=== PATIENT | female | born 1955 | race Caucasian/White ===

== ENCOUNTER → 2017-10-13 07:33 | Outpatient (CLI) | payer OTHER, SELFPAY ==
[2017-10-13 09:05] LABS: Add Manual Diff / Slide Review NO; Eosinophils Percent Auto 4.3 % (2-4); Hematocrit 41.3 % (36-46); Hemoglobin 13.9 g/dL (12.0-16.0); Lymphocytes Percent Auto 16.1 % (25-40); Mean Corpuscular HGB Conc 33.6 % (30-36); Mean Corpuscular Hemoglobin 30.1 PG (26-34); Mean Corpuscular Volume 89.6 fL (80-100); Monocytes Percent Auto 9.9 % (3-14); Neutrophils Absolute Auto 6300 /uL (3000-5900); Neutrophils Percent Auto 68.7 % (50-75); Platelet Count 279 X10^3/uL (150-400); Red Blood Cell Count 4.61 X10^6/uL (4.0-5.2); Red Cell Distribution Width 14.8 % (11.6-14.8); White Blood Cell Count 9.1 X10^3/uL (4.5-11.0)
[2017-10-13 09:22] LABS: Alanine Aminotransferase 28 IU/L (9-52); Albumin 4.1 g/dL (3.5-5.0); Albumin Globulin Ratio 1.4 (1.0-2.8); Alkaline Phosphatase 96 U/L (38-126); Aspartate Aminotransferase 24 IU/L (14-36); BUN Creatinine Ratio 16.3 (6-22); Bilirubin Total 0.4 mg/dL (0.2-1.3); Blood Urea Nitrogen 13 mg/dL (7-17); Calcium 9.6 mg/dL (8.4-10.2); Carbon Dioxide 27 mmol/L (22-32); Chloride 100 mmol/L (98-107); Estimated Glomerular Filt Rate > 60.0 mL/min (>60); Globulin 2.9 g/dL (1.7-4.1); Glucose 101 mg/dL (80-110); HEMOLYSIS < 15 (0-50); Potassium 4.5 mmol/L (3.4-5.1); Sodium 141 mmol/L (137-145)
== END ==
PROVIDERS: PCP Internal Medicine; Visit Provider Physician Assistant
DX: L40.0 Psoriasis vulgaris (principal)
CPT/HCPCS: 36415; 80053; 85025

== ENCOUNTER 2017-11-21 13:34 | Day surgery (SDC) | payer OTHER, SELFPAY ==
[2017-11-04 14:34] VITALS: BMI 25.9
[2017-11-21] VITALS (7 sets, daily range): BP systolic 112–143; BP diastolic 69–80; PULSE 61–86; RESP 12–21; TEMP 36.1–36.8; O2SAT 93–99; BMI 25.9
--- NOTE | 2017-11-21 07:48 | PM.OP.1 ---
Operative Date/Time/Diagnoses Date of procedure: 11/21/17 Time of procedure: 18:52 Pre-op diagnosis: Right hallux abductovalgus with bunion, arthritis Post-op diagnosis: same Procedure & Clinicians Procedure: Right bunionectomy with distal metatarsal osteotomy and proximal phalangeal osteotomy Same procedure as scheduled: Yes Indications: Painful great toe Surgeon: Naila Garcia Yes if Unassisted: Yes Anesthesia Type: General Operative Notes Findings: Closure Type: primary Specimen(s): none sent Implants & Drains: Trilliant 2.0 x2 screws and Gobler staple size 8x8 Estimated Blood Loss (mL): 20 Tourniquet time (min): 49 Procedure in detail: The patient was brought to the operating room and placed on the operative table in the supine position well-padded and appropriately aligned. A tourniquet was placed about the patient's right ankle. After induction of general anesthesia the foot and ankle were prepped and draped in the usual aseptic manner. After a check of anesthesia the TQ was inflated and an incision was made over the first metatarsophalangeal joint. The incision was deepened through subcutaneous tissues being careful to identify and retract all neural and vascular structures. All bleeders were cauterized and ligated as necessary. A T-type capsulotomy was performed to the 1st MTPJ to expose the enlarged medial eminence of the 1st metatarsal head. Additionally, the 1st interspace was entered and a lateral release was performed. The medial eminence was resected with a saw and a saw was then used to perform a chevron cut with a long dorsal arm to the 1st metatarsal medially to laterally. The distal fragment was then mobilized lateralized and we impacted upon the shaft. The osteotomy was temporarily fixated with a guidewire and shown to be in good corrected alignment. Using standard AO techniques and through the aid of a C-arm a 2.0 mm screw was placed and a 2nd 1 was placed as well. These were found to be strong in good alignment and through the aid of fluoroscopy showing no areas of impingement. The area of overhang of the proximal shaft was then reduced with a saw and any sharp edges were smoothed with a manual rasp. All remaining guidewires were removed. It was at this point that the correction was needed further and the phalangeal osteotomy was desired. The incision was lengthened through the proximal phalanx of the hallux and dissection was carried down to the bone. Using an adequate amount of room for hardware placement the saw was used to create 2 bone cuts which resulted in a wedge with a lateral hinge intact. This wedge of bone was removed and gently the osteotomy was closed down using the standard technique, a staple was placed across the osteotomy and placed the osteotomy under tension which closed it. Upon loading the foot under fluoroscopy alignment was good. The area was irrigated with copious amounts of normal sterile saline. The tourniquet was deflated and a prompt hyperemic response was seen to the foot. A medial capsulorrhaphy to the 1st MTPJ was performed which further aided in correction of the alignment. Deep closure was performed using 3 0 Vicryl for O subcutaneously and 3 0 nylon to the skin. She was dressed with a lightly compressive sterile dressing and placed in her postsurgical shoe. She was transferred to the PACU with vital signs stable. Complications: none Condition: stable Disposition: PACU Plan for aftercare: Following a period of postoperative monitoring the patient will be discharged home on written and oral postoperative instructions including keeping the dressing dry and intact, avoid ambulation to the foot, icing and elevating the foot when seated at home, ,DVT prevention techniques have been reviewed her 1st postoperative visit will be a dressing change and around the weeks 3-/2 to 4 will have her 1st postoperative x-ray. Nonweightbearing.
[2017-11-21] MEDS: LACTATED RINGERS 1,000 ML 42 ML IV (16:00)
--- NOTE | 2017-11-21 16:57 | PM.PREOP ---
Pre-operative Note Interval Note Pre-op Check: Yes History & Physical Reviewed by Physician Changes: No
[2017-11-21] MEDS: CEFAZOLIN VIAL 1 GM in SODIUM CHLORIDE 0.9% 100 ML 200 ML IV (17:09)
--- NOTE | 2017-11-21 17:38 | SUR.OPER ---
Supine on padded OR bed, head on pillow, arms secured on padded arm boards at <90 degrees abduction, legs uncrossed, safety belt at waist, tape over blanket over lower left leg. Right leg drapped free with gel bump under right hip
[2017-11-21] MEDS: BUPIVACAINE 0.5% (PF) VIAL 30 ML INJ (18:00)
--- NOTE | 2017-11-21 19:49 | SUR.PHASEII ---
Pt able to wiggle toes, reported numb great toe. drsg cdi, shoe in place.
== END 2017-11-21 19:43 | disposition home or self-care (01) ==
PROVIDERS: PCP Internal Medicine; Visit Provider Podiatrist
PROC: 0QBN0ZZ Excision of Right Metatarsal, Open Approach (ICD-10-PCS; CPT 28292; principal; 2017-11-21 15:15)
DX: M77.41 Metatarsalgia, right foot (principal); M20.11 Hallux valgus (acquired), right foot; M21.611 Bunion of right foot
CPT/HCPCS: 28299; J0690; J1100; J1170; J2405; J2704

== ENCOUNTER → 2018-03-23 14:22 | Outpatient (CLI) | payer OTHER, SELFPAY ==
[2018-03-23 14:36] LABS: Add Manual Diff / Slide Review NO; Basophils Percent Auto 0.6 % (0-2); Eosinophils Percent Auto 0.8 % (2-4); Hematocrit 42.9 % (36-46); Hemoglobin 13.9 g/dL (12.0-16.0); Lymphocytes Percent Auto 24.2 % (25-40); Mean Corpuscular HGB Conc 32.4 % (30-36); Mean Corpuscular Volume 92.6 fL (80-100); Monocytes Percent Auto 8.7 % (3-14); Neutrophils Absolute Auto 6000 /uL (3000-5900); Neutrophils Percent Auto 65.7 % (50-75); Platelet Count 275 X10^3/uL (150-400); Red Blood Cell Count 4.63 X10^6/uL (4.0-5.2); Red Cell Distribution Width 14.9 % (11.6-14.8); White Blood Cell Count 9.1 X10^3/uL (4.5-11.0)
[2018-03-23 14:54] LABS: Alanine Aminotransferase 31 IU/L (9-52); Albumin 4.6 g/dL (3.5-5.0); Albumin Globulin Ratio 1.7 (1.0-2.8); Alkaline Phosphatase 81 U/L (38-126); Aspartate Aminotransferase 29 IU/L (14-36); BUN Creatinine Ratio 21.3 (6-22); Bilirubin Total 0.3 mg/dL (0.2-1.3); Blood Urea Nitrogen 17 mg/dL (7-17); Calcium 9.7 mg/dL (8.4-10.2); Carbon Dioxide 27 mmol/L (22-32); Chloride 101 mmol/L (98-107); Estimated Glomerular Filt Rate > 60.0 mL/min (>60); Globulin 2.7 g/dL (1.7-4.1); Glucose 99 mg/dL (80-110); HEMOLYSIS < 15 (0-50); Potassium 3.9 mmol/L (3.4-5.1); Sodium 140 mmol/L (137-145); Total Protein 7.3 g/dL (6.3-8.2)
== END ==
PROVIDERS: Family Provider Internal Medicine; PCP Internal Medicine; Visit Provider Physician Assistant
DX: L40.0 Psoriasis vulgaris (principal)
CPT/HCPCS: 36415; 80053; 85025

== ENCOUNTER → 2018-06-05 14:05 | Outpatient (CLI) | payer OTHER, SELFPAY ==
--- NOTE | 2018-06-05 | DI.US.S_ITS ---
PROCEDURE: US CAROTID DOPPLER BI INDICATIONS: TINNITIS TECHNIQUE: Color and pulse Doppler interrogation was performed of both carotid systems, with image documentation and velocity measurements. COMPARISON: None. FINDINGS: Stenosis calculations are based on SRU (Society of Radiologists in Ultrasound) criteria. The flow velocities and the arterial waveforms are normal within both carotid arterial systems. Atherosclerotic plaque is seen on both sides. The estimated degree of internal carotid artery stenosis is less than 50%. Antegrade flow is confirmed within both vertebral arteries. IMPRESSION: No hemodynamically significant stenosis is seen. Atherosclerotic plaque is noted bilaterally. Dictated by: Wilberto Rg M.D. on 06/05/2018 at 15:35 Approved by: Wilberto Rg M.D. on 06/05/2018 at 15:35
== END ==
PROVIDERS: Family Provider Internal Medicine; PCP Internal Medicine; Visit Provider Otolaryngology Facial Plastic Surgery
DX: H93.A1 Pulsatile tinnitus, right ear (principal); I65.23 Occlusion and stenosis of bilateral carotid arteries
CPT/HCPCS: 93880

== ENCOUNTER → 2018-06-17 11:55 | Outpatient (CLI) | payer OTHER, SELFPAY ==
--- NOTE | 2018-06-17 | DI.MG.S_ITS ---
BILATERAL DIGITAL SCREENING MAMMOGRAM 3D/2D WITH CAD: 06/17/2018 CLINICAL: Routine screening. Comparison is made to exams dated: 06/02/2017 mammogram and 05/30/2016 mammogram - [facility]. The tissue of both breasts is heterogeneously dense. This may lower the sensitivity of mammography. Current study was also evaluated with a Computer Aided Detection (CAD) system. No significant masses, calcifications, or other findings are seen in either breast. There has been no significant interval change. IMPRESSION: NEGATIVE There is no mammographic evidence of malignancy. A 1 year screening mammogram is recommended. This exam was interpreted at Station ID: [id number]. NOTE: For mammograms, a report in lay terms will be sent to the patient. Approximately 15% of breast malignancies will not be visualized mammographically. In the management of a palpable breast mass, a negative mammogram must not discourage biopsy of a clinically suspicious lesion. Electronically Signed By: Lalit lynn/lara:06/17/2018 16:10:30 copy to: Maida Machado letter sent: Normal Exam ACR BI-RADS Category 1: Negative 3341F
== END ==
PROVIDERS: Family Provider Internal Medicine; PCP Internal Medicine; Visit Provider Obstetrics & Gynecology
DX: Z12.31 Encounter for screening mammogram for malignant neoplasm of breast (principal)
CPT/HCPCS: 77063; 77067

== ENCOUNTER → 2018-07-29 08:41 | Outpatient (CLI) | payer OTHER, SELFPAY ==
[2018-07-29 10:15] LABS: Add Manual Diff / Slide Review NO; Basophils Absolute Auto 100 /uL (0-100); Eosinophils Absolute Auto 100 /uL (0-450); Eosinophils Percent Auto 1.4 % (2-4); Lymphocytes Absolute Auto 2000 /uL (1100-4500); Lymphocytes Percent Auto 23.6 % (25-40); Mean Corpuscular HGB Conc 34.1 % (30-36); Mean Corpuscular Hemoglobin 31.3 PG (26-34); Monocytes Absolute Auto 600 /uL (0-900); Monocytes Percent Auto 7.2 % (3-14); Neutrophils Absolute Auto 5500 /uL (1500-7000); Neutrophils Percent Auto 66.8 % (50-75); Platelet Count 275 X10^3/uL (150-400); Red Blood Cell Count 4.46 X10^6/uL (4.0-5.2); Red Cell Distribution Width 14.3 % (11.6-14.8); White Blood Cell Count 8.3 X10^3/uL (4.5-11.0)
[2018-07-29 10:58] LABS: Alanine Aminotransferase 38 IU/L (9-52); Albumin 4.4 g/dL (3.5-5.0); Albumin Globulin Ratio 1.6 (1.0-2.8); Alkaline Phosphatase 85 U/L (38-126); Aspartate Aminotransferase 32 IU/L (14-36); Bilirubin Total 0.6 mg/dL (0.2-1.3); Blood Urea Nitrogen 17 mg/dL (7-17); Calcium 9.8 mg/dL (8.4-10.2); Carbon Dioxide 26 mmol/L (22-32); Chloride 100 mmol/L (98-107); Globulin 2.7 g/dL (1.7-4.1); Glucose 98 mg/dL (80-110); HEMOLYSIS < 15 (0-50); Potassium 4.7 mmol/L (3.4-5.1); Sodium 138 mmol/L (137-145); Total Protein 7.1 g/dL (6.3-8.2)
== END ==
PROVIDERS: Family Provider Internal Medicine; PCP Internal Medicine; Visit Provider Physician Assistant
DX: L40.0 Psoriasis vulgaris (principal)
CPT/HCPCS: 36415; 80053; 85025

== ENCOUNTER → 2018-10-26 07:45 | Outpatient (CLI) | payer OTHER, SELFPAY ==
[2018-10-26 09:29] LABS: Alanine Aminotransferase 30 IU/L (9-52); Albumin 4.3 g/dL (3.5-5.0); Albumin Globulin Ratio 1.4 (1.0-2.8); Alkaline Phosphatase 100 U/L (38-126); Aspartate Aminotransferase 34 IU/L (14-36); BUN Creatinine Ratio 14.4 (6-22); Bilirubin Total 0.5 mg/dL (0.2-1.3); Blood Urea Nitrogen 13 mg/dL (7-17); Calcium 9.4 mg/dL (8.4-10.2); Carbon Dioxide 28 mmol/L (22-32); Chloride 105 mmol/L (98-107); Cholesterol 168 mg/dL (140-199); Estimated Glomerular Filt Rate > 60.0 mL/min (>60); Glucose 95 mg/dL (80-110); HDL Cholesterol 50 mg/dL (40-60); HEMOLYSIS < 15 (0-50); LDL Cholesterol Calculated 83 mg/dL (<100); Potassium 4.1 mmol/L (3.4-5.1); Sodium 143 mmol/L (137-145); Total Protein 7.3 g/dL (6.3-8.2); Triglycerides 175 mg/dL (35-150)
[2018-10-26 09:42] LABS: Vitamin D 25 Hydroxy (D3) 64.8 ng/mL (30.0-100.0)
[2018-10-26 09:49] LABS: Add Manual Diff / Slide Review NO; Basophils Absolute Auto 100 /uL (0-100); Basophils Percent Auto 0.9 % (0-2); Eosinophils Absolute Auto 100 /uL (0-450); Eosinophils Percent Auto 1.8 % (2-4); Hematocrit 42.4 % (36-46); Hemoglobin 14.2 g/dL (12.0-16.0); Lymphocytes Absolute Auto 2200 /uL (1100-4500); Lymphocytes Percent Auto 26.3 % (25-40); Mean Corpuscular HGB Conc 33.4 % (30-36); Mean Corpuscular Volume 92.6 fL (80-100); Monocytes Absolute Auto 500 /uL (0-900); Monocytes Percent Auto 6.3 % (3-14); Neutrophils Absolute Auto 5400 /uL (1500-7000); Neutrophils Percent Auto 64.7 % (50-75); Platelet Count 234 X10^3/uL (150-400); Red Blood Cell Count 4.58 X10^6/uL (4.0-5.2); Red Cell Distribution Width 14.1 % (11.6-14.8); White Blood Cell Count 8.3 X10^3/uL (4.5-11.0)
[2018-10-26 09:58] LABS: Thyroid Stimulating Hormone 2.91 uIU/mL (0.47-4.68)
[2018-10-26 10:15] LABS: Hemoglobin A1C% w Est Avg Glu 5.4 % (4.0-6.0)
== END ==
PROVIDERS: Family Provider Internal Medicine; PCP Internal Medicine; Visit Provider Nurse Practitioner Psychiatric/Mental Health
DX: F33.1 Major depressive disorder, recurrent, moderate (principal); F39 Unspecified mood [affective] disorder
CPT/HCPCS: 36415; 80053; 80061; 80175; 82306; 83036; 84443; 85025

== ENCOUNTER → 2019-02-26 07:48 | Outpatient (CLI) | payer OTHER, SELFPAY ==
[2019-02-26 08:18] LABS: Add Manual Diff / Slide Review NO; Basophils Absolute Auto 100 /uL (0-100); Basophils Percent Auto 1.1 % (0-2); Eosinophils Absolute Auto 200 /uL (0-450); Eosinophils Percent Auto 2.6 % (2-4); Hematocrit 39.5 % (36-46); Lymphocytes Absolute Auto 1700 /uL (1100-4500); Lymphocytes Percent Auto 24.7 % (25-40); Mean Corpuscular HGB Conc 32.9 % (30-36); Mean Corpuscular Hemoglobin 31.1 PG (26-34); Mean Corpuscular Volume 94.5 fL (80-100); Monocytes Absolute Auto 600 /uL (0-900); Monocytes Percent Auto 9.3 % (3-14); Neutrophils Absolute Auto 4300 /uL (1500-7000); Neutrophils Percent Auto 62.3 % (50-75); Platelet Count 223 X10^3/uL (150-400); Red Blood Cell Count 4.18 X10^6/uL (4.0-5.2); Red Cell Distribution Width 14.6 % (11.6-14.8); White Blood Cell Count 6.8 X10^3/uL (4.5-11.0)
[2019-02-26 08:54] LABS: Alanine Aminotransferase 20 IU/L (9-52); Albumin 4.2 g/dL (3.5-5.0); Albumin Globulin Ratio 1.8 (1.0-2.8); Alkaline Phosphatase 90 U/L (38-126); Aspartate Aminotransferase 26 IU/L (14-36); Bilirubin Total 0.5 mg/dL (0.2-1.3); Blood Urea Nitrogen 14 mg/dL (7-17); Calcium 9.6 mg/dL (8.4-10.2); Carbon Dioxide 25 mmol/L (22-32); Chloride 103 mmol/L (98-107); Globulin 2.4 g/dL (1.7-4.1); Glucose 99 mg/dL (80-110); HEMOLYSIS 19 (0-50); Potassium 4.5 mmol/L (3.4-5.1); Sodium 139 mmol/L (137-145); Total Protein 6.6 g/dL (6.3-8.2)
== END ==
PROVIDERS: Family Provider Internal Medicine; PCP Internal Medicine; Visit Provider Physician Assistant
DX: L40.0 Psoriasis vulgaris (principal)
CPT/HCPCS: 36415; 80053; 85025

== ENCOUNTER → 2019-06-29 12:22 | Outpatient (CLI) | payer OTHER, SELFPAY ==
--- NOTE | 2019-06-29 | DI.MG.S_ITS ---
BILATERAL DIGITAL SCREENING MAMMOGRAM 3D/2D WITH CAD: 06/29/2019 CLINICAL: Routine screening. Family history of breast cancer. Comparison is made to exams dated: 06/17/2018 mammogram - [facility], 06/02/2017 mammogram, and 05/30/2016 mammogram - [facility]. The tissue of both breasts is heterogeneously dense. This may lower the sensitivity of mammography. Current study was also evaluated with a Computer Aided Detection (CAD) system. There are benign calcifications in the right breast. No significant masses, calcifications, or other findings are seen in either breast. There has been no significant interval change. IMPRESSION: There is no mammographic evidence of malignancy. A 1 year screening mammogram is recommended. This exam was interpreted at Station ID: [id number]. NOTE: For mammograms, a report in lay terms will be sent to the patient. Approximately 15% of breast malignancies will not be visualized mammographically. In the management of a palpable breast mass, a negative mammogram must not discourage biopsy of a clinically suspicious lesion. Electronically Signed By: Eva paul/lara:06/29/2019 14:56:30 letter sent: Normal Exam ACR BI-RADS Category 2: Benign Finding(s) 3342F
== END ==
PROVIDERS: Family Provider Internal Medicine; PCP Internal Medicine; Referring Provider Internal Medicine; Visit Provider Internal Medicine
DX: Z12.31 Encounter for screening mammogram for malignant neoplasm of breast (principal); Z80.3 Family history of malignant neoplasm of breast; Z13.820 Encounter for screening for osteoporosis; M85.851 Other specified disorders of bone density and structure, right thigh; Z78.0 Asymptomatic menopausal state; Z82.62 Family history of osteoporosis
CPT/HCPCS: 77063; 77067; 77080

== ENCOUNTER → 2019-09-16 11:40 | Outpatient (CLI) | payer OTHER, SELFPAY ==
[2019-09-16 12:35] LABS: Add Manual Diff / Slide Review NO; Basophils Absolute Auto 0 /uL (0-100); Basophils Percent Auto 0.5 % (0-2); Eosinophils Absolute Auto 0 /uL (0-450); Eosinophils Percent Auto 0.6 % (2-4); Hematocrit 42.1 % (36-46); Hemoglobin 13.9 g/dL (12.0-16.0); Lymphocytes Absolute Auto 1900 /uL (1100-4500); Lymphocytes Percent Auto 25.8 % (25-40); Mean Corpuscular HGB Conc 33.2 % (30-36); Mean Corpuscular Hemoglobin 30.9 PG (26-34); Mean Corpuscular Volume 93.3 fL (80-100); Monocytes Absolute Auto 700 /uL (0-900); Monocytes Percent Auto 9.1 % (3-14); Neutrophils Absolute Auto 4700 /uL (1500-7000); Platelet Count 245 X10^3/uL (150-400); Red Blood Cell Count 4.51 X10^6/uL (4.0-5.2); Red Cell Distribution Width 14.3 % (11.6-14.8); White Blood Cell Count 7.4 X10^3/uL (4.5-11.0)
[2019-09-16 12:54] LABS: Alanine Aminotransferase 16 IU/L (<35); Albumin 4.4 g/dL (3.5-5.0); Albumin Globulin Ratio 1.5 (1.0-2.8); Alkaline Phosphatase 92 U/L (38-126); Aspartate Aminotransferase 26 IU/L (14-36); BUN Creatinine Ratio 15.3 (6-22); Bilirubin Total 0.3 mg/dL (0.2-1.3); Blood Urea Nitrogen 15 mg/dL (7-17); Calcium 9.6 mg/dL (8.4-10.2); Carbon Dioxide 27 mmol/L (22-32); Chloride 101 mmol/L (98-107); Estimated Glomerular Filt Rate 57.1 mL/min (>60); Glucose 89 mg/dL (80-110); HEMOLYSIS < 15 (0-50); Potassium 4.4 mmol/L (3.4-5.1); Sodium 138 mmol/L (137-145); Total Protein 7.4 g/dL (6.3-8.2)
[2019-09-16 13:40] LABS: Hepatitis B Surface Antigen NEGATIVE s/c (NEGATIVE)
[2019-09-16 13:56] LABS: HIV 1 & 2 Ab/Ag 4th Gen Combo NEGATIVE (NEGATIVE); Hep C Virus Ab w/Reflex Quant NEGATIVE s/c (NEGATIVE)
[2019-09-20 00:49] LABS: QuantiFERON Mitogen Value 6.88 IU/mL (.); QuantiFERON Nil Value 0.12 IU/mL (.); QuantiFERON TB Gold Plus Negative (Negative); QuantiFERON TB1 Ag Value 0.14 IU/mL (.); QuantiFERON TB2 Ag Value 0.11 IU/mL (.)
== END ==
PROVIDERS: Family Provider Internal Medicine; PCP Internal Medicine; Referring Provider Physician Assistant; Visit Provider Physician Assistant
DX: L40.0 Psoriasis vulgaris (principal)
CPT/HCPCS: 36415; 80053; 85025; 86480; 86803; 87340; 87389

== ENCOUNTER → 2020-06-15 08:26 | Outpatient (CLI) | payer OTHER, SELFPAY ==
[2020-06-15 09:40] LABS: Add Manual Diff / Slide Review NO; Basophils Absolute Auto 0 /uL (0-100); Basophils Percent Auto 0.7 % (0-2); Eosinophils Absolute Auto 0 /uL (0-450); Eosinophils Percent Auto 0.3 % (2-4); Hematocrit 41.5 % (36-46); Hemoglobin 13.3 g/dL (12.0-16.0); Lymphocytes Absolute Auto 2300 /uL (1100-4500); Lymphocytes Percent Auto 35.1 % (25-40); Mean Corpuscular HGB Conc 32.1 % (30-36); Mean Corpuscular Hemoglobin 29.5 PG (26-34); Mean Corpuscular Volume 91.9 fL (80-100); Monocytes Absolute Auto 700 /uL (0-900); Monocytes Percent Auto 10.4 % (3-14); Neutrophils Absolute Auto 3600 /uL (1500-7000); Neutrophils Percent Auto 53.5 % (50-75); Platelet Count 214 X10^3/uL (150-400); Red Blood Cell Count 4.52 X10^6/uL (4.0-5.2); Red Cell Distribution Width 14.3 % (11.6-14.8); White Blood Cell Count 6.7 X10^3/uL (4.5-11.0)
[2020-06-15 09:58] LABS: Alanine Aminotransferase 157 IU/L (<35); Albumin Globulin Ratio 1.3 (1.0-2.8); Alkaline Phosphatase 103 U/L (38-126); Aspartate Aminotransferase 168 IU/L (14-36); BUN Creatinine Ratio 18.2 (6-22); Bilirubin Total 0.2 mg/dL (0.2-1.3); Blood Urea Nitrogen 18 mg/dL (7-17); Calcium 9.9 mg/dL (8.4-10.2); Carbon Dioxide 28 mmol/L (22-32); Chloride 106 mmol/L (98-107); Estimated Glomerular Filt Rate 56.3 mL/min (>60); Globulin 3.1 g/dL (1.7-4.1); Glucose 109 mg/dL (80-110); HEMOLYSIS < 15 (0-50); Potassium 4.2 mmol/L (3.4-5.1); Sodium 138 mmol/L (137-145); Total Protein 7.1 g/dL (6.3-8.2)
[2020-06-19 20:55] LABS: QuantiFERON Mitogen Value 8.45 IU/mL (.); QuantiFERON Nil Value 0.14 IU/mL (.); QuantiFERON TB Gold Plus Negative (Negative); QuantiFERON TB1 Ag Value 0.14 IU/mL (.); QuantiFERON TB2 Ag Value 0.14 IU/mL (.)
== END ==
PROVIDERS: Family Provider Internal Medicine; PCP Internal Medicine; Referring Provider Physician Assistant; Visit Provider Physician Assistant
DX: L40.0 Psoriasis vulgaris (principal); E11.65 Type 2 diabetes mellitus with hyperglycemia; E03.9 Hypothyroidism, unspecified
CPT/HCPCS: 36415; 80053; 85025; 86480

== ENCOUNTER → 2020-07-07 12:03 | Outpatient (CLI) | payer OTHER, SELFPAY ==
--- NOTE | 2020-07-07 | DI.MG.S_ITS ---
BILATERAL DIGITAL SCREENING MAMMOGRAM 3D/2D WITH CAD: 07/07/2020 CLINICAL: Routine screening. Family history of breast cancer. Comparison is made to exams dated: 06/29/2019 mammogram, 06/17/2018 mammogram - [facility], and 06/02/2017 mammogram - [facility]. The tissue of both breasts is heterogeneously dense. This may lower the sensitivity of mammography. Current study was also evaluated with a Computer Aided Detection (CAD) system. There is a biopsy clip in the right breast. No significant masses, calcifications, or other findings are seen in either breast. There has been no significant interval change. IMPRESSION: NEGATIVE There is no mammographic evidence of malignancy. A 1 year screening mammogram is recommended. This exam was interpreted at Station ID: [id number]. NOTE: For mammograms, a report in lay terms will be sent to the patient. Approximately 15% of breast malignancies will not be visualized mammographically. In the management of a palpable breast mass, a negative mammogram must not discourage biopsy of a clinically suspicious lesion. Electronically Signed By: Jeanmarie hummel/lara:07/07/2020 12:38:26 letter sent: Normal Exam ACR BI-RADS Category 1: Negative 3341F
== END ==
PROVIDERS: Family Provider Internal Medicine; PCP Internal Medicine; Referring Provider Internal Medicine; Visit Provider Internal Medicine
DX: Z12.31 Encounter for screening mammogram for malignant neoplasm of breast (principal); Z80.3 Family history of malignant neoplasm of breast
CPT/HCPCS: 77063; 77067

== ENCOUNTER → 2020-07-28 14:12 | Outpatient (CLI) | payer OTHER, SELFPAY ==
--- NOTE | 2020-07-28 14:14 | DI.CT.S_ITS ---
PROCEDURE: CT ABDOMEN PELVIS W CON INDICATIONS: Abnormal levels of other serum enzymes TECHNIQUE: After the administration of oral and intravenous contrast, 5 mm thick sections acquired from the diaphragms to the symphysis. 5 mm thick coronal and sagittal reformats were performed. For radiation dose reduction, the following was used: automated exposure control, adjustment of mA and/or kV according to patient size. COMPARISON: None. FINDINGS: Image quality: Excellent. ABDOMEN: Lung bases: Lung bases are clear. Heart size is normal. Solid organs: Liver is normal in size and enhancement. Gallbladder is normal. Biliary system is non-dilated. Pancreas enhances normally. Spleen is normal in size and enhancement. No adrenal nodules. Kidneys are normal in size and enhancement, without hydronephrosis. Peritoneum and bowel: The distal esophagus and stomach are normal. There is a 3 centimeter duodenal diverticulum. small bowel are normal. The large bowel contains increased stool consistent with constipation. Nodes and vessels: No retroperitoneal or mesenteric adenopathy. Aorta and inferior vena cava are normal in caliber. Miscellaneous: No ventral hernias. PELVIS: Genitourinary: Bladder wall thickness is normal. The uterus contains hyperdense foci consistent with fibroids. Miscellaneous: No inguinal hernias or adenopathy. Bones: There is degenerative disc disease of L4-5. No suspicious bony lesions. No vertebral body compression fractures. IMPRESSION: 1. No acute or significant abnormality of the abdomen or pelvis. 2. Constipation. Dictated by: Donato Cardenas M.D. on 07/28/2020 at 15:02 Approved by: Donato Cardenas M.D. on 07/28/2020 at 15:10
== END ==
PROVIDERS: Family Provider Internal Medicine; PCP Internal Medicine; Referring Provider Internal Medicine; Visit Provider Internal Medicine
DX: R74.8 Abnormal levels of other serum enzymes (principal); K59.00 Constipation, unspecified
CPT/HCPCS: 74177; Q9967

== ENCOUNTER → 2021-05-01 13:54 | Outpatient (CLI) | payer OTHER, SELFPAY ==
--- NOTE | 2021-05-01 13:56 | DIET.OUTPTC ---
Dietary Outpatient Consultation Note Consultation Date: 05/01/2021 Assessment: 65y F here to address preDM, CKD3, HLD. Pt desires weight loss, was 118# back in 2008, now 140# wants to lose weight to try to manage preDM and cholesterol levels. Pt has been following mostly plant-based diet x2y with occasional fish or meat on holidays with family. Pt states her has been fixated on protein content of foods and not on carb levels. Breakfast: indonesian toast c maple syrup c orange bagel c vegan butter and fruit Protein drink 8oz (banana, ice, almnd milk) Black tea L: roll and butter c date ball or yogurt or cheese D: Tacos c fake meat and refried beans, lettuce and tomatoes; soups and stews, black betancur enchilladas, Silvia: sparkling water, tea No current exercise, would like to walk but has fallen a few times and afraid for balance Labs: FBG 103, A1c 6.0, eGFR 51, Cr 1.07, hx HLD RD Impression: Pts diet high in carbohydrates but otherwise fairly kidney friendly. Pt reports having difficulty staying hydrated as she does not like to drink plain water. Pt would do well to increase physical activity to build lean body mass and practice consistent carbohydrate diet to lose 10% body weight and regulate blood sugars. Pt eating mostly plant proteins which is great for her kidney preservation. Nutrition Dx: altered nutrition related laboratory values r/t nutrition related knowledge deficit aeb FBG 103, A1c 6.0, eGFR 51, Cr 1.07, hx HLD, pt states she does not know how to eat to manage her current health conditions. EER: 1250kcals Interventions: 1. Educated pt on preDM- FBG, A1c, and ways to change these numbers in the short and senior care. Discussed carbohydrate levels in foods using handout and discussed in context of pts current intake. 2. Educated pt on plate balance eating. Using food models and pts usual diet, collaborated on problem solving higher carb meals and ensuring balance of PRO/CHO/F/V. 3. Discussed barriers to exercise. Pt will start walking on evenly paved paths. Pt was attending senior center fitness classes three times per week prior to covid. Printed off current newsletter and highlighted ZOOM classes, pt excited to restart. 4. Discussed important topics in CKD3- low sodium and moderating protein. Pt will eat 4 servings protein daily (half palm meat, 1/2c beans/lentils, handful nuts/seeds or 1tbs nut/seed butter). Pt will move her morning protein drink to a midmorning snack. Monitoring/Evaluation: f/u in 4w Electronically Signed by: Rafaela Song 05/01/21 13:56 Clinical Dietitian [address] [id number]
[2021-05-01 14:32] VITALS: BMI 26.4
== END ==
PROVIDERS: Family Provider Internal Medicine; PCP Internal Medicine; Referring Provider Internal Medicine; Visit Provider Internal Medicine
DX: R73.03 Prediabetes (principal); I12.9 Hypertensive chronic kidney disease with stage 1 through stage 4 chronic kidney disease, or unspecified chronic kidney disease; N18.30 Chronic kidney disease, stage 3 unspecified
CPT/HCPCS: 97802

== ENCOUNTER → 2021-05-29 13:56 | Outpatient (CLI) | payer OTHER, SELFPAY ==
--- NOTE | 2021-05-29 14:04 | DIET.PN1 ---
Dietary Progress Note 65y F attending [address] f/u visit for help with managing CKD 3 and to lose weight. Pt is -9# since March, and has lost 4# since our visit 4w ago. Pt was hoping to have lost more weight by now but understands this is the darkest of winter and just got through holiday season. Pt has many family birthdays in May/Jun and is wondering how to navigate the added calories inherent to celebrating birthdays. Pt started chair yoga since we last met, has walked a few times, would like to increase activity. Interventions: 1. Congratulated pt on losing 9# since before . Discussed sustainable weight loss with preference for losing fat mass rather than fat/muscle/water that occurs with crash dieting. 2. Discussed adding walk or exercise class on day she will be eating a slice of birthday cake. Discussed future planning to purchase or make single serve desserts to not be stuck eating leftovers for days after a birthday. 3. Encouraged pt to increase physical activity to 150min/week walking and two thirty minute zoom classes. Pt would like to lose belly fat, is already restricting kcals to 1250, recc pt increase physical activity and keep kcals the same. Pt getting next set of renal labs drawn in mid-Jun. F/U scheduled for late Jun to review new labs and discuss any nutrition changes. Electronically Signed by: Rafaela Song 05/29/21 14:04 Clinical Dietitian [address] [address]
== END ==
PROVIDERS: Family Provider Internal Medicine; PCP Internal Medicine; Referring Provider Internal Medicine; Visit Provider Internal Medicine
DX: N18.30 Chronic kidney disease, stage 3 unspecified (principal); Z71.3 Dietary counseling and surveillance
CPT/HCPCS: 97803

== ENCOUNTER → 2021-07-18 11:43 | Outpatient (CLI) | payer OTHER, SELFPAY ==
--- NOTE | 2021-07-18 | DI.MG.S_ITS ---
BILATERAL DIGITAL SCREENING MAMMOGRAM 3D/2D WITH CAD: 07/18/2021 CLINICAL: Family history of breast cancer. Comparison is made to exams dated: 07/07/2020 mammogram, 06/29/2019 mammogram, and 06/17/2018 mammogram - [facility]. The tissue of both breasts is heterogeneously dense. This may lower the sensitivity of mammography. Current study was also evaluated with a Computer Aided Detection (CAD) system. There is a biopsy clip in the right breast. No significant masses, calcifications, or other findings are seen in either breast. There has been no significant interval change. IMPRESSION: NEGATIVE There is no mammographic evidence of malignancy. A 1 year screening mammogram is recommended. This exam was interpreted at Station ID: [id number]. NOTE: For mammograms, a report in lay terms will be sent to the patient. Approximately 15% of breast malignancies will not be visualized mammographically. In the management of a palpable breast mass, a negative mammogram must not discourage biopsy of a clinically suspicious lesion. Electronically Signed By: Jeanmarie hummel/lara:07/18/2021 14:36:07 letter sent: Normal Exam ACR BI-RADS Category 1: Negative 3341F
== END ==
PROVIDERS: Family Provider Internal Medicine; PCP Internal Medicine; Referring Provider Internal Medicine; Visit Provider Internal Medicine
DX: Z12.31 Encounter for screening mammogram for malignant neoplasm of breast (principal); Z78.0 Asymptomatic menopausal state; Z80.3 Family history of malignant neoplasm of breast; M85.89 Other specified disorders of bone density and structure, multiple sites
CPT/HCPCS: 77063; 77067; 77080

== ENCOUNTER → 2021-07-24 12:53 | Outpatient (CLI) | payer OTHER, SELFPAY ==
--- NOTE | 2021-07-24 13:06 | DIET.PN1 ---
Dietary Progress Note 66y F attending f/u RD visit for CKD3, overweight, and pre-DM. Pt has lost 13# total and has normalized her BMI, no longer overweight. Pts newest renal labs steady. Pt would like to continue losing more weight, aims for BMI 21. Long discussion with pt who has osteopenia on not dropping BMI below 23. Pt unhappy with belly fat. Discussed increasing ab exercises to define musculature and advised against cutting any more PO intake as pt consuming 1250kcals. Shared modified ab workout c pt via YouTube. Pt will start this twice weekly in addition to her 150min weekly walking. Ht: 5'1 Wt: 128# BMI: 24.4 Usual Day: B: georgian muffin with almond butter and fresh berries with cup tea L: yogurt c mandarin orange or cube cheese with mandarin orange and triscuits D: 1/2 salmon burger c 1/2 bun and steamed veggies (cauliflower, broccoli and carrots, pepper) Sn: [employer] chocolate chips Monitoring/Evaluations: f/u in 3mo to review renal labs and discuss summer eating with renal dz. Electronically Signed by: Rafaela Song 07/24/21 13:06 Clinical Dietitian [address] [address]
== END ==
PROVIDERS: Family Provider Internal Medicine; PCP Internal Medicine; Referring Provider Internal Medicine; Visit Provider Internal Medicine
DX: R73.03 Prediabetes (principal); N18.30 Chronic kidney disease, stage 3 unspecified; E66.3 Overweight
CPT/HCPCS: 97803

== ENCOUNTER → 2021-10-30 13:24 | Outpatient (CLI) | payer OTHER, SELFPAY ==
--- NOTE | 2021-10-30 13:38 | DIET.OUTPTC ---
Dietary Outpatient Consultation Note Consultation Date: 10/30/[address] 66[address] f/u for CKD3. Pt got A1c done, not even preDM now that she has lost weight and is near her goal weight (-11.2% in 6mo). Renal fxn same as usual, eGFR in mid 50s. Current weight: 125# Pt and spouse get weekly vegetable bag from [employer]. Happy to eat fresh, local fruits and vegetables. Spent majority of today discussing summer eating for CKD and calcium contents of food as pt has osteopenia. Interventions: 1. Discussed high and low potassium foods in summer eating. Provided pt 5 recipes for renal friendly summer meals. 2. Provided pt handout on calcium content of vegetarian foods. Discussed pts current calcium intake and calcium supplementation. Pt takes 2 calcium pills at lunch daily, does not know how much they are. Pt will track her calcium from food for a few days and change her supplementation to fill the gap. f/u in mid-January to continue education. Electronically Signed by: Rafaela Song 10/30/21 13:38 Clinical Dietitian [address] [address]
== END ==
PROVIDERS: Family Provider Internal Medicine; PCP Internal Medicine; Referring Provider Internal Medicine; Visit Provider Internal Medicine
DX: N18.30 Chronic kidney disease, stage 3 unspecified (principal); Z71.3 Dietary counseling and surveillance
CPT/HCPCS: 97803

== ENCOUNTER → 2021-12-24 11:45 | Outpatient (CLI) | payer OTHER, SELFPAY ==
--- NOTE | 2021-12-24 | DI.RAD.S_ITS ---
PROCEDURE: XR CHEST 2V INDICATIONS: COUGH TECHNIQUE: 2 views of the chest were acquired. COMPARISON: [facility], , CHEST 2 VIEW, 07/07/2017, 11:27. FINDINGS: Surgical changes and devices: None. Lungs and pleura: Lungs are clear. No pleural effusions or pneumothorax. Mediastinum: Mediastinal contours are normal. Heart size is normal. Bones and chest wall: Mild rightward curvature of the thoracic spine. No suspicious bony abnormalities. Soft tissues appear unremarkable. IMPRESSION: No acute cardiopulmonary abnormality. Dictated by: Donato Cardenas M.D. on 12/24/2021 at 14:00 Approved by: Donato Cardenas M.D. on 12/24/2021 at 14:01
== END ==
PROVIDERS: Family Provider Internal Medicine; PCP Internal Medicine; Referring Provider Internal Medicine; Visit Provider Internal Medicine
DX: R05.1 Acute cough (principal); Z20.822 Contact with and (suspected) exposure to COVID-19
CPT/HCPCS: 71046; 87635

== ENCOUNTER → 2021-12-24 12:39 | Outpatient (ROUT) | payer OTHER, SELFPAY ==
[2021-12-24 13:04] LABS: COVID19 -Nasal RAPID Negative (Negative)
== END ==
PROVIDERS: Family Provider Internal Medicine; PCP Internal Medicine; Visit Provider Internal Medicine
DX: R05.1 Acute cough (principal); Z20.822 Contact with and (suspected) exposure to COVID-19
CPT/HCPCS: 87635

== ENCOUNTER → 2022-01-04 14:06 | Outpatient (CLI) | payer OTHER, SELFPAY ==
--- NOTE | 2022-01-04 14:11 | DI.CT.S_ITS ---
PROCEDURE: CT ANGIO CHEST PE PROTOCOL INDICATIONS: Shortness of breath lab TECHNIQUE: After the administration of intravenous contrast, 2 mm thick sections acquired from the pulmonary apices to the posterior costophrenic angles. 3-dimensional maximum intensity projection (MIP) coronal and sagittal reformats were then acquired through the thorax. For radiation dose reduction, the following was used: automated exposure control, adjustment of mA and/or kV according to patient size. COMPARISON: None. FINDINGS: Image quality: Excellent. Pulmonary arteries: Pulmonary arteries are normal in size, and demonstrate no intraluminal filling defects to suggest central pulmonary embolism. Lungs and pleura: A 7 mm ground-glass nodule is present at the right apex (series 5/image 48). Mediastinum: Heart size is normal, without pericardial effusion. No mediastinal or hilar adenopathy. Thoracic aorta is normal in caliber and enhancement. Esophagus is normal in caliber. There is a moderate hernia. Bones and chest wall: No suspicious bony lesions. Ribs and thoracic spine appear intact throughout. Thyroid gland is unremarkable. No axillary or supraclavicular adenopathy. Abdomen: Visualized upper abdominal solid organs appear normal in the early arterial phase of enhancement. IMPRESSION: 1. No acute pulmonary embolus. 2. 7 mm ground-glass nodule. Please see follow-up guidelines below. Follow-up CT in 6-12 months recommended. 3. Moderate hiatal hernia. Fleischner Society criteria for SOLID lung nodule followup. Nodule size (mm)Low-risk patientHigh-risk patient<6 (single or multiple)No routine followup.Optional CT at 12 months. 6-8 (single or multiple)CT at 6-12 months, then optional CT at 18-24 mo.CT at 6-12 months, then CT at 18-24 months. >8 (single)CT at 3 months, PET-CT, or biopsy. Same as for low-risk pts. >8 (multiple)CT at 3-6 months, then optional CT at 18-24 mo.CT at 3-6 months, then CT at 18-24 months. Fleischner Society criteria for SUB-SOLID lung nodule followup. Solitary pure ground-glass nodules<6 mm (ground glass or part solid)No followup needed. 6 mm or larger (ground glass)CT at 6-12 months to confirm persistence, then CT every 2 years until 5 years.6 mm or larger (part solid)CT at 3-6 months to confirm persistence, then annual CT until 5 years if unchanged and solid component remains <6 mm. Multiple sub-solid nodules<6 mmCT at 3-6 months, then CT consider at 2 & 4 years for high risk patients. [address] at 3-6 months. Subsequent management based on most suspicious lesions. Recommendations do not apply to lung cancer screening, patients with immunosuppression, or patients with known primary cancer. Dictated by: Eva Navarro M.D. on 01/04/2022 at 15:17 Approved by: Eva Navarro M.D. on 01/04/2022 at 15:21
[2022-01-04 14:26] LABS: Add Manual Diff / Slide Review NO; Basophils Absolute Auto 100 /uL (0-100); Eosinophils Absolute Auto 400 /uL (0-450); Eosinophils Percent Auto 2.7 % (2-4); Hematocrit 42.5 % (36-46); Hemoglobin 14.1 g/dL (12.0-16.0); Lymphocytes Absolute Auto 3700 /uL (1100-4500); Lymphocytes Percent Auto 28.4 % (25-40); Mean Corpuscular Hemoglobin 29.5 PG (26-34); Mean Corpuscular Volume 89.1 fL (80-100); Monocytes Absolute Auto 1000 /uL (0-900); Monocytes Percent Auto 7.6 % (3-14); Neutrophils Absolute Auto 7800 /uL (1500-7000); Neutrophils Percent Auto 60.3 % (50-75); Platelet Count 296 X10^3/uL (150-400); Red Blood Cell Count 4.77 X10^6/uL (4.0-5.2)
[2022-01-04 14:38] LABS: Alanine Aminotransferase 19 IU/L (<35); Albumin 4.2 g/dL (3.5-5.0); Albumin Globulin Ratio 1.3 (1.0-2.8); Alkaline Phosphatase 85 U/L (38-126); Aspartate Aminotransferase 27 IU/L (14-36); BUN Creatinine Ratio 18.7 (6-22); Bilirubin Total 0.3 mg/dL (0.2-1.3); Blood Urea Nitrogen 17 mg/dL (7-17); Calcium 9.2 mg/dL (8.4-10.2); Carbon Dioxide 28 mmol/L (22-32); Chloride 101 mmol/L (98-107); Estimated Glomerular Filt Rate > 60 mL/min (>60); Globulin 3.3 g/dL (1.7-4.1); Glucose 103 mg/dL (80-110); HEMOLYSIS < 15 (0-50); Potassium 4.2 mmol/L (3.4-5.1); Sodium 135 mmol/L (137-145); Total Protein 7.5 g/dL (6.3-8.2)
[2022-01-04 14:39] LABS: D Dimer 281 ng/ml (<500)
== END ==
PROVIDERS: Family Provider Internal Medicine; PCP Internal Medicine; Referring Provider Internal Medicine; Visit Provider Internal Medicine
DX: R06.02 Shortness of breath (principal); R06.01 Orthopnea; R05.1 Acute cough; R73.03 Prediabetes; N18.31 Chronic kidney disease, stage 3a; K44.9 Diaphragmatic hernia without obstruction or gangrene
CPT/HCPCS: 36415; 71275; 80053; 85025; 85379; Q9967

== ENCOUNTER → 2022-01-15 13:21 | Outpatient (CLI) | payer OTHER, SELFPAY ==
--- NOTE | 2022-01-15 13:36 | DIET.OUTPTC ---
Dietary Outpatient Consultation Note Consultation Date: 01/15/[address] 66[address] f/u for CKD3. Pt had recent labs showing eGFR >60 and Cr WNL!!! Pt has lost 17# (12%) since May 2021 and is within 3# of her weight goal. Pt focusing on moderating protein intake, higher intake vegetarian foods while being careful with potassium intake. Pt exercising regularly. Pt interested in support around snacking. Pt feeling like having salty snack in mid-afternoon, often not hungry but bored. Interventions: 1. Discussed alternate activity for 10 minutes to see if snack hunger goes away. If pt consumes snack, recc high fiber and low kcal option such as lupini beans or blair seaweed snacks. Pt will order both to see if she likes them and will continue current healthy habits. F/u in May 2022 to assess next set of renal labs. Electronically Signed by: Rafaela Song 01/15/22 13:36 Clinical Dietitian [address] [address]
== END ==
PROVIDERS: Family Provider Internal Medicine; PCP Internal Medicine; Referring Provider Internal Medicine; Visit Provider Internal Medicine
DX: N18.30 Chronic kidney disease, stage 3 unspecified (principal); Z71.3 Dietary counseling and surveillance
CPT/HCPCS: 97803

== ENCOUNTER → 2022-01-21 16:30 | Outpatient (ROUT) | payer OTHER, SELFPAY ==
[2022-01-21 17:28] LABS: COVID19 -Nasal RAPID Negative (Negative)
== END ==
PROVIDERS: Family Provider Internal Medicine; PCP Internal Medicine; Visit Provider Internal Medicine
DX: R05.1 Acute cough (principal); Z20.822 Contact with and (suspected) exposure to COVID-19
CPT/HCPCS: 87635

== ENCOUNTER → 2022-04-10 11:18 | Outpatient (ROUT) | payer OTHER, SELFPAY ==
[2022-04-10 11:33] LABS: Add Manual Diff / Slide Review NO; Basophils Absolute Auto 0 /uL (0-100); Basophils Percent Auto 0.6 % (0-2); Eosinophils Absolute Auto 100 /uL (0-450); Eosinophils Percent Auto 0.7 % (2-4); Hematocrit 41.2 % (36-46); Hemoglobin 13.8 g/dL (12.0-16.0); Lymphocytes Absolute Auto 2400 /uL (1100-4500); Lymphocytes Percent Auto 32.1 % (25-40); Mean Corpuscular HGB Conc 33.5 % (30-36); Mean Corpuscular Volume 89.6 fL (80-100); Monocytes Absolute Auto 500 /uL (0-900); Monocytes Percent Auto 7.5 % (3-14); Neutrophils Absolute Auto 4400 /uL (1500-7000); Neutrophils Percent Auto 59.1 % (50-75); Platelet Count 253 X10^3/uL (150-400); Red Cell Distribution Width 13.7 % (11.6-14.8); White Blood Cell Count 7.4 X10^3/uL (4.5-11.0)
[2022-04-10 11:57] LABS: D Dimer 397 ng/ml (<500)
== END ==
PROVIDERS: Family Provider Internal Medicine; PCP Internal Medicine; Visit Provider Internal Medicine
DX: R73.03 Prediabetes (principal); R05.1 Acute cough; N18.31 Chronic kidney disease, stage 3a
CPT/HCPCS: 85025; 85379

== ENCOUNTER → 2022-05-14 13:26 | Outpatient (CLI) | payer OTHER, SELFPAY ==
--- NOTE | 2022-05-15 11:06 | DIET.OUTPTC ---
Addendum entered by Rafaela Song 05/15/22 11:14: Visit date 05/14/22, RD wrote note day after visit. Original Note: Dietary Outpatient Consultation Note Consultation Date: 05/15/20[address] 66[address] RD f/u for CKD3. Pt reports decreased ability to follow diet recommendations as she just moved her father into memory care center and her mom is still at home with dementia. Pt answering phone calls several times per day from mom who is wondering where dad is. eGFR mid-50s, PCP recommends increasing fluid intake. Pt endorses reduced intake fluids due to busy schedule. Pt has not been walking nor doing her core exercises due to same stressors. Pt reports sister is coming to stay with their mom for a few months. Pt plans to use her time to batch cook some soups for remainder of winter and start walking. Discussed soup as excellent way to increase fluid intake in addition to more water. Educated pt on ability for serving sizes on recipes to be adjusted online with goal for her to make 6 serving batches so she and her have extra, but not too much that they get bored with the recipe. Encouraged pts efforts at restarting exercise routine. f/u in 4mo to review renal labs and continue supportive care. Electronically Signed by: Rafaela Song 05/15/22 11:06 Clinical Dietitian [address] [address]
== END ==
PROVIDERS: Family Provider Internal Medicine; PCP Internal Medicine; Referring Provider Internal Medicine; Visit Provider Internal Medicine
DX: N18.30 Chronic kidney disease, stage 3 unspecified (principal); Z71.3 Dietary counseling and surveillance
CPT/HCPCS: 97803

== ENCOUNTER → 2022-07-19 12:46 | Outpatient (CLI) | payer OTHER, SELFPAY ==
--- NOTE | 2022-07-19 | DI.MG.S_ITS ---
BILATERAL DIGITAL SCREENING MAMMOGRAM 3D/2D WITH CAD: 07/19/2022 CLINICAL: Routine screening. Family history of breast cancer. Comparison is made to exams dated: 07/18/2021 mammogram, 07/07/2020 mammogram, and 06/29/2019 mammogram - [facility]. Both breasts are heterogeneously dense, which may obscure small masses (category c / 51-75% glandular tissue). Current study was also evaluated with a Computer Aided Detection (CAD) system. There are benign calcifications in the right breast. There also is a biopsy clip in the right breast. No significant masses, calcifications, or other findings are seen in either breast. There has been no significant interval change. IMPRESSION: BENIGN There is no mammographic evidence of malignancy. A 1 year screening mammogram is recommended. Based on the Tyrer Cuzick model (a risk assessment model) the patient's lifetime risk is 12.0% and her 10 year risk is 6.4%. According to the ACR, ACS, and NCCN guidelines, an annual breast MRI exam along with mammogram is recommended if the patient's lifetime risk is 20% or greater. This exam was interpreted at Station ID: [id number]. NOTE: For mammograms, a report in lay terms will be sent to the patient. Approximately 15% of breast malignancies will not be visualized mammographically. In the management of a palpable breast mass, a negative mammogram must not discourage biopsy of a clinically suspicious lesion. Electronically Signed By: Caroline earl/lara:07/19/2022 17:34:38 letter sent: Normal Exam ACR BI-RADS Category 2: Benign Finding(s) 3342F
== END ==
PROVIDERS: Family Provider Internal Medicine; PCP Internal Medicine; Referring Provider Internal Medicine; Visit Provider Internal Medicine
DX: Z12.31 Encounter for screening mammogram for malignant neoplasm of breast (principal); Z80.3 Family history of malignant neoplasm of breast
CPT/HCPCS: 77063; 77067

== ENCOUNTER → 2022-10-03 19:16 | Outpatient (CLI) | payer OTHER, SELFPAY ==
--- NOTE | 2022-10-03 | DI.MRI.S_ITS ---
PROCEDURE: MR STROKE Pre- and post-contrast brain MRI, non-contrast brain MR angiogram, pre- and postcontrast neck MR angiogram INDICATIONS: visual disturbance/migraine TECHNIQUE: Brain: Noncontrast axial T1 spin echo, axial T2 fast spin echo, sagittal and axial FLAIR, coronal T2 fast spin echo, axial gradient echo, axial diffusion and ADC through the brain. After the administration of contrast, axial 3D VIBE of the cranial vasculature and brain. Brain MRA: Non-contrast 3-D time of flight MR angiogram, with multiple bzjwbkf-nxshfdsse-kjqcgehpbk (MIP) reformats performed. Neck MRA: Axial and sagittal TruFISP through the neck. Coronal dynamic MR angiogram during administration of contrast in the arterial and venous phases, with 3-dimenstional zkovies-vvwrkbzir-flkzadksys (MIP) reformats constructed from subtraction images. COMPARISON: None. FINDINGS: Image quality: Excellent. BRAIN: CSF spaces: Ventricles are normal in size and shape. Basal cisterns are patent. No extra-axial fluid collections. Brain: No intracranial bleeds or mass effects. Mild diffuse cerebral volume loss. Najera-white matter interface is normal. Diffusion weighted images show no acute ischemic insults. Brainstem appears normal. Normal intravascular flow voids are present. No abnormal intracranial enhancement. Skull and face: Calvarial marrow signal is normal. Orbits appear normal. Sinuses: Sinuses and mastoids are clear. BRAIN MR ANGIOGRAM: Anterior circulation: Intracranial internal carotid arteries are normal in size and enhancement. The flow within the paired anterior cerebral arteries is normal and symmetric. The flow within the middle cerebral arteries is normal and symmetric. The anterior communicating artery is seen. No stenoses, occlusions, or aneurysms. Posterior circulation: The visualized portions of the vertebral arteries demonstrate normal caliber, and join to form a normal appearing basilar artery. The flow within the posterior cerebral arteries is normal and symmetric. No stenoses, occlusions, or aneurysms. NECK MR ANGIOGRAM: Carotids: Great vessels demonstrate a conventional anatomy as they arise from the aortic arch. The origins of the common carotid arteries appear patent. The calibers and courses of both common carotid arteries are normal. The bifurcation regions appear normal bilaterally. The internal carotid arteries demonstrate normal course and caliber. Posterior circulation: The origins of the vertebral arteries appear patent. More superior portions of both vertebral arteries demonstrate normal course and caliber, and join to form a normal appearing basilar artery. Miscellaneous: Subclavian arteries appear patent. Pre-contrast images through the neck show no soft tissue abnormalities. IMPRESSION: BRAIN MRI: 1. Mild volume loss and small vessel ischemic disease. 2. No acute process. No recent infarct. BRAIN MR ANGIOGRAM: Negative cerebral MR angiography. NECK MR ANGIOGRAM: 1. No internal carotid artery stenosis bilaterally. 2. Patent bilateral vertebral arteries. Dictated by: James Craft M.D. on 10/04/2022 at 8:17 Approved by: James Craft M.D. on 10/04/2022 at 8:20
== END ==
PROVIDERS: Family Provider Internal Medicine; PCP Internal Medicine; Referring Provider Internal Medicine; Visit Provider Internal Medicine
DX: R26.9 Unspecified abnormalities of gait and mobility (principal); R25.9 Unspecified abnormal involuntary movements; H53.9 Unspecified visual disturbance; G43.009 Migraine without aura, not intractable, without status migrainosus; G25.0 Essential tremor; I67.89 Other cerebrovascular disease
CPT/HCPCS: 70548; 70553; A9579

== ENCOUNTER → 2022-11-21 12:46 | Outpatient (CLI) | payer OTHER, SELFPAY ==
--- NOTE | 2022-11-21 | DI.CT.S_ITS ---
PROCEDURE: CT CHEST WO CON INDICATIONS: lung nodule TECHNIQUE: Noncontrast 2.0-2.5 mm thick sections acquired from the pulmonary apices to the posterior costophrenic angles. 7 mm thick axial MIP and 5 mm coronal and sagittal reformats were then acquired. A low radiation dose technique was utilized. COMPARISON: [facility], CT, CT ANGIO CHEST PE PROTOCOL, 01/04/2022, 14:50. FINDINGS: Image quality: Diagnostic, given the low radiation dose technique. Lungs and pleura: There is a 7 mm ground-glass nodule in the posterior right upper lobe (series 3, image 56), unchanged in size. No pulmonary infiltrate or consolidation. No pleural effusion. Mediastinum: Heart size is normal. No pericardial effusion. No mediastinal adenopathy by size criteria. Thoracic aorta and central pulmonary arteries are normal in size. Esophagus is normal in caliber. No hiatal hernia. Bones and chest wall: No suspicious bony lesions. No vertebral body compression fractures. No axillary or supraclavicular adenopathy by size criteria. Thyroid gland is normal. Abdomen: Visualized upper abdomen solid organs and bowel loops appear normal in the absence of contrast. IMPRESSION: 1. Stable right upper lobe ground-glass nodule since 01/04/2022. Please see enclosed follow-up recommendation. Next follow-up CT is suggested in 12 months. Fleischner Society criteria for SUB-SOLID lung nodule followup. Solitary pure ground-glass nodules<6 mm (ground glass or part solid)No followup needed. 6 mm or larger (ground glass)CT at 6-12 months to confirm persistence, then CT every 2 years until 5 years.6 mm or larger (part solid)CT at 3-6 months to confirm persistence, then annual CT until 5 years if unchanged and solid component remains <6 mm. Multiple sub-solid nodules<6 mmCT at 3-6 months, then CT consider at 2 & 4 years for high risk patients. [address] at 3-6 months. Subsequent management based on most suspicious lesions. Recommendations do not apply to lung cancer screening, patients with immunosuppression, or patients with known primary cancer. Dictated by: Alma Delia Sher M.D. on 11/21/2022 at 14:59 Approved by: Alma Delia Sher M.D. on 11/21/2022 at 15:03
== END ==
PROVIDERS: Family Provider Internal Medicine; PCP Internal Medicine; Referring Provider Internal Medicine; Visit Provider Internal Medicine
DX: R91.1 Solitary pulmonary nodule (principal)
CPT/HCPCS: 71250

== ENCOUNTER → 2023-07-28 14:17 | Outpatient (CLI) | payer OTHER, SELFPAY ==
--- NOTE | 2023-07-28 14:18 | DI.MG.S_ITS ---
BILATERAL DIGITAL SCREENING MAMMOGRAM 3D/2D WITH CAD: 07/28/2023 CLINICAL: Routine screening. Family history of breast cancer. Comparison is made to exams dated: 07/19/2022 mammogram, 07/07/2020 mammogram, 07/18/2021 mammogram, and 06/29/2019 mammogram - [facility]. Both breasts are heterogeneously dense, which may obscure small masses (category c / 51-75% glandular tissue). Current study was also evaluated with a Computer Aided Detection (CAD) system. There are benign calcifications in the right breast. There also is a biopsy clip in the right breast. No significant masses, calcifications, or other findings are seen in either breast. There has been no significant interval change. IMPRESSION: BENIGN There is no mammographic evidence of malignancy. A 1 year screening mammogram is recommended. Based on the Tyrer Cuzick model (a risk assessment model) the patient's lifetime risk is 11.4% and her 10 year risk is 6.4%. According to the ACR, ACS, and NCCN guidelines, an annual breast MRI exam along with mammogram is recommended if the patient's lifetime risk is 20% or greater. This exam was interpreted at Station ID: [id number]. NOTE: For mammograms, a report in lay terms will be sent to the patient. Approximately 15% of breast malignancies will not be visualized mammographically. In the management of a palpable breast mass, a negative mammogram must not discourage biopsy of a clinically suspicious lesion. Electronically Signed By: Dariel gallego/lara:07/28/2023 15:54:45 letter sent: Normal Exam ACR BI-RADS Category 2: Benign Finding(s) 3342F
== END ==
PROVIDERS: Family Provider Internal Medicine; PCP Internal Medicine; Referring Provider Registered Nurse; Visit Provider Registered Nurse
DX: Z12.31 Encounter for screening mammogram for malignant neoplasm of breast (principal); Z80.3 Family history of malignant neoplasm of breast; R92.333 Mammographic heterogeneous density, bilateral breasts
CPT/HCPCS: 77063; 77067

== ENCOUNTER → 2023-08-19 14:44 | Outpatient (CLI) | payer OTHER, SELFPAY ==
--- NOTE | 2023-08-22 15:36 | DIET.OUTPTC ---
Addendum entered by Nuria Ball 08/27/23 17:48: Nutrition Assessment: 68 y F referred for nutrition services for pre-DM, HDL, and CKD3 Nutrition intervention: 1. Provided MNT for pre-diabetes, CKD3 and HDL Original Note: Dietary Outpatient Consultation Note Consultation Date: 08/19/2023 Nutrition Assessment: 68 y F referred for nutrition services for pre-DM and HDL. Kay wants to reduce her A1c and prevent or delay onset of diabetes type 2. She reports wanting to reduce the amount of sweet snacks and control sweet cravings. Reports going in kitchen and having a portion of snack, but then wanting more. Experiences this during day and after dinner. Things that help are keeping busy in sewing room. Wants to use placement and try different recipes of healthier snacks to reduce sweet intake. Ht: 5 ft 1.5 in Wt: 124 lb (56.2 kg) BMI: 23.05 She is a pescatarian Diet Recall: 8a: 1 slice whole wheat toast, fruit, no sugar added jelly - used to use almond butter noon: crackers and cheese OR israeli yogurt (no sugar added) 5-530p: safeway noodle salad, veg soup snacks: cookies or sweet snacks Drinks no sugar added tea o water Activity: Silver sneakers muscle building workout 3x/wk 1 hr GI symptoms: denies N/V/D/C and acid reflux, prefers softer foods Lab Values: A1c: 6.0 on 05/16/23 eGFR: >60 on 05/16/23 Nutrition diagnosis: Altered nutrition related lab values (A1c) r/t to endocrine dysfunction as evidenced by A1c 6.0 on 05/16/23 Nutrition intervention: 1. Provided MNT for pre-diabetes and HDL Including: overview pathophysio, balanced meals, macros, label reading Goals: 1. Add protein source to sweet snacks for balanced snack and add protein to breakfast - almond butter or egg 2. Trial different snacks discussed (energy bits, tofu pudding, etc) for sweet snack alternatives 3. Intuitive eating - not discussed today Monitoring/eval: goals, diet recall, related labs F/u in 1 month Electronically Signed by: Nuria Ball 08/22/23 15:36 Clinical Dietitian [address] [place] [address]
== END ==
PROVIDERS: Family Provider Internal Medicine; PCP Internal Medicine; Referring Provider Internal Medicine; Visit Provider Internal Medicine
DX: R73.03 Prediabetes (principal); E78.5 Hyperlipidemia, unspecified; Z71.3 Dietary counseling and surveillance; N18.30 Chronic kidney disease, stage 3 unspecified
CPT/HCPCS: 97802

== ENCOUNTER 2024-08-02 08:24 | Day surgery (SDC) | payer OTHER, SELFPAY ==
[2024-08-02] MEDS: LACTATED RINGERS 1,000 ML 42 ML IV (08:52)
[2024-08-02 09:01] VITALS: BP 138/85; PULSE 86; RESP 18; TEMP 36.5; O2SAT 96
--- NOTE | 2024-08-02 09:14 | PM.HP.IH.1 ---
History of Present Illness History of Present Illness Date Patient Seen: 08/02/24 Chief complaint: Screening Colonoscopy Narrative: Follow-up screening colonoscopy. Last colonoscopy over 10 years ago [facility], 1928–1983 Medical History (Updated 02/03/18 @ 18:16 by BRIAN Gonzalez) Psoriasis Depression Anxiety Mumps Measles Chicken pox History of palpitations Cavus foot, acquired Gastrocnemius equinus of left lower extremity Instability of left ankle joint Right foot pain Metatarsalgia of both feet Fracture of right ankle Essential tremor Uterine fibroid (2008) Vision disorder Tinnitus Migraine without aura (1964) Postmenopausal Bunion of right foot Surgical History (Updated 02/03/18 @ 12:17 by Arielle Jose) History of bunionectomy (11/21/17) Anesthesia History of removal of cyst (2008) History of ankle surgery (1969) History of myomectomy (2008) S/P correction of deviated nasal septum (1982) Status post eye surgery (1962) History of bladder suspension procedure (1984) Family History (Updated 02/03/18 @ 12:19 by Arielle Jose) Mother Age: 90 Hypertension Diabetes mellitus Sister Age: 73 Stroke Diabetes mellitus Brother Homicide Father No problems noted. Social History household members: spouse Smoking Status: Never smoker alcohol intake: never Meds Home Medications and Allergies Home Medications Medication Instructions Recorded Confirmed Type zoster vaccine live (PF) 19,400 0.5 ml SQ SEE INSTRUCTIONS #1 dose 05/16/16 10/19/18 Rx unit/0.65 mL subcutaneous suspension (Zostavax (PF)) venlafaxine 50 mg tablet 25 mg PO ONCE 09/08/17 08/02/24 History sumatriptan succinate 100 mg 100 mg PO Q DAY PRN Migraine 11/04/17 08/02/24 History tablet (Imitrex) simvastatin 10 mg tablet 5 mg (1/2 x 10 mg) PO .hs #90 tabs 07/23/18 08/02/24 Rx latanoprost 0.005 % eye drops 1 drp EYE-BOTH ONCE PM 08/02/24 08/02/24 History propranolol 20 mg tablet 30 mg PO BID 08/02/24 08/02/24 History quetiapine 25 mg tablet 25 mg PO ONCE PM 08/02/24 08/02/24 History Allergies Allergy/AdvReac Type Severity Reaction Status Date / Time fluoxetine [FLUOXETINE] Allergy Mild NAUSEA/DIAR Verified 08/02/24 08:55 NAHEED latex [LATEX] Allergy Mild RASH Verified 08/02/24 08:55 sertraline [SERTRALINE] Allergy Mild Verified 08/02/24 08:55 tetracycline [TETRACYCLINE] AdvReac Mild N/V Verified 08/02/24 08:55 Exam Vital Signs (past 8 hours): - 08/02/24 09:01 Temperature 97.7 F Pulse Rate 86 Respiratory Rate 18 Blood Pressure 138/85 Pulse Oximetry 96 Oxygen Delivery Method Room Air Oxygen Delivery Method Room Air Narrative Exam Narrative: Oropharynx free of lesions Chest clear to auscultation percussion Cardiac exam reveals no S3 or murmur Assessment & Plan Assessment & Plan narrative: Need for follow-up screening colonoscopy with last colonoscopy over 10 years ago. Risks, benefits, alternatives have been explained. Time-Based Coding :: [TOTAL MINUTES] spent with patient and on the chart (including review of chart, obtaining history, exam, reviewing outside data, placing orders, documenting exam and treatment plan, and counseling patient) on [DATE]. 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
--- NOTE | 2024-08-02 09:15 | PM.OP.COLON ---
Operative Date/Time/Diagnoses Date of procedure: 08/02/24 Pre-op diagnosis: See indication and findings Procedure & Clinicians Study performed: Colonoscopy Same procedure as scheduled: Yes Indications: Screening Surgeon: Gemma Ennis Procedure Notes Procedure in detail: After informed consent was obtained the patient was placed in left lateral decubitus position. The video colonoscope was introduced the rectum slowly advanced to the cecum. On slow withdrawal mucosa was carefully examined. The scope was removed. The patient tolerated procedure well. Blood loss none Complications none Sedation mac Findings 1. Very tortuous colon but negative colonoscopy to cecum Patient should have follow-up colonoscopy in 10 years
[2024-08-02 10:19] VITALS: BP 112/63; PULSE 106; RESP 18; TEMP 36.1; O2SAT 97
[2024-08-02 10:24] VITALS: BP 112/67; PULSE 94; RESP 16; O2SAT 97
[2024-08-02 10:29] VITALS: BP 121/69; PULSE 82; RESP 18; TEMP 36.6; O2SAT 95
[2024-08-02 10:35] VITALS: BP 121/72; PULSE 79; RESP 14; TEMP 36.6; O2SAT 95
== END 2024-08-02 10:42 | disposition home or self-care (01) ==
PROVIDERS: Family Provider Internal Medicine; PCP Family Medicine; Referring Provider Internal Medicine Gastroenterology; Visit Provider Internal Medicine Gastroenterology
PROC: 0DJD8ZZ Inspection of Lower Intestinal Tract, Via Natural or Artificial Opening Endoscopic (ICD-10-PCS; CPT 45378; principal; 2024-08-02 09:30)
DX: Z12.11 Encounter for screening for malignant neoplasm of colon (principal)
CPT/HCPCS: G0121; J2704

== ENCOUNTER → 2024-08-03 17:11 | Outpatient (ROUT) | payer OTHER, SELFPAY ==
[2024-08-03 18:34] LABS: Influenza A - CEPHEID Flu A NEGATIVE (NEGATIVE); Influenza B - CEPHEID Flu B NEGATIVE (NEGATIVE); Respiratory Syncytial Virus Negative (Negative)
[2024-08-03 18:35] LABS: COVID-19 CEPHEID 4-PLEX PCR Negative (Negative)
== END ==
PROVIDERS: Family Provider Internal Medicine; PCP Family Medicine; Visit Provider Family Medicine
DX: R05.1 Acute cough (principal); R09.81 Nasal congestion
CPT/HCPCS: 0241U

== ENCOUNTER → 2024-08-23 14:11 | Outpatient (CLI) | payer OTHER, SELFPAY ==
--- NOTE | 2024-08-23 14:13 | DI.MG.S_ITS ---
MM screening mammo BI: 08/23/2024. BI-RADS: 2 CLINICAL: 69-year old female for bilateral screening mammogram. Tyrer-Cuzick lifetime risk of 6.4%. No personal or first-degree family history of breast cancer. Current reported family history of breast cancer: maternal aunt and second maternal aunt. The patient had a prior right breast biopsy. PRIOR EXAMS 07/28/2023, 07/19/2022, 07/18/2021, 07/07/2020, 06/29/2019, 06/17/2018, 06/02/2017, 05/30/2016, 05/26/2015. MAMMOGRAPHY TECHNIQUE: 2D and 3D (tomosynthesis) digital mammographic views obtained, with additional images as needed for full coverage. Current study was also evaluated with a Computer Aided Detection (CAD) system. DENSITY C. The breasts are heterogeneously dense, which may obscure small masses. MAMMOGRAPHY FINDINGS Right: Biopsy markers present on the right. Benign-appearing calcification noted on the right. There are no suspicious masses, calcifications, or other findings in the breast. No significant change from comparison. Left: No suspicious mass, asymmetry, microcalcification, or other abnormality seen. No significant change from comparison. IMPRESSION: Right * No evidence of malignancy with benign findings. Left * No evidence of malignancy. RECOMMENDATIONS Bilateral * Annual screening mammography. OVERALL ASSESSMENT CATEGORY BI-RADS-2: Benign. The [employer] recommends annual screening mammography beginning at age 40 for women with average risk of breast cancer. ELECTRONICALLY SIGNED: Caroline Garcia M.D. on 08/24/2024 at 09:06:38 AM PT Interpreting Station ID: [id number]
== END ==
PROVIDERS: Family Provider Internal Medicine; PCP Family Medicine; Referring Provider Family Medicine; Visit Provider Family Medicine
DX: Z12.31 Encounter for screening mammogram for malignant neoplasm of breast (principal); Z80.3 Family history of malignant neoplasm of breast; R92.333 Mammographic heterogeneous density, bilateral breasts
CPT/HCPCS: 77063; 77067

== ENCOUNTER → 2024-09-20 14:04 | Outpatient (CLI) | payer OTHER, SELFPAY ==
--- NOTE | 2024-09-20 14:05 | DI.RAD.S_ITS ---
PROCEDURE: XR DEXA AXIAL SKELETON INDICATIONS: abnormal bone density screening COMPARISON: [facility], EMELY, XR DEXA AXIAL SKELETON, 07/18/2021, 12:29. FINDINGS: Lumbar Spine: Bone mineral density 0.811 g/cm2, T score -1.9, compared to -1.8. Left Femoral Neck: Bone mineral density 0.650 g/cm2, T score -1.8, compared to -1.5. Left Hip: Bone mineral density 0.715 g/cm2, T score -1.9, compared to -1.6. Fracture Risk Calculation (when applicable): 10-year fracture risk of a major osteoporotic fracture 10 percent and of a hip fracture 1.6 percent. This is compared to 7.3% and 0.4% respectively. (T score greater or equal to -1.0 to: NORMAL) (T score from -1.1 to -2.4: OSTEOPENIA) (T score less than or equal to -2.5: OSTEOPOROSIS) IMPRESSION: Progressive bone mineral density loss most severe in the left femoral neck and hip now moderate osteopenia. Follow-up guidelines as follows: Osteoporosis: Consider a repeat DEXA and Vertebral Fracture Assessment (VFA) exam in 2 years or sooner if medically necessary, to reassess this patient's status. Osteopenia: Consider a repeat DEXA in 2-3 years to reassess this patient's status, or if there is a new clinical indication. Normal: Consider a repeat DEXA in 5 years or sooner, or if there is a new clinical indication. All treatment decisions require clinical judgment and consideration of individual patient factors, including patient preferences, comorbidities, previous drug use, risk factors not captured in the FRAX model (e.g., frailty, falls, vitamin D deficiency, increased bone turnover, interval significant decline in bone density ) and possible under- or over-estimation of fracture risk by FRAX. In addition, the NOF Guide recommends that FDA-approved medical therapies be considered in postmenopausal women and men age >= 50 years with a: * Hip or vertebral (clinical or morphometric) fracture * T-score of <=-2.5 at the spine or hip * Ten-year fracture probability by FRAX of >= 3% for hip fracture or >=20% for major osteoporotic fracture. Dictated by: Radha Reddy M.D. on 09/20/2024 at 17:27 Approved by: Radha Reddy M.D. on 09/20/2024 at 17:28
== END ==
PROVIDERS: Family Provider Internal Medicine; PCP Family Medicine; Referring Provider Family Medicine; Visit Provider Family Medicine
DX: Z78.0 Asymptomatic menopausal state (principal); M85.89 Other specified disorders of bone density and structure, multiple sites; R93.7 Abnormal findings on diagnostic imaging of other parts of musculoskeletal system
CPT/HCPCS: 77080

== ENCOUNTER → 2024-10-01 13:19 | Outpatient (ROUT) | payer OTHER, SELFPAY ==
[2024-10-01 14:08] LABS: Influenza A - CEPHEID Flu A NEGATIVE (NEGATIVE); Influenza B - CEPHEID Flu B NEGATIVE (NEGATIVE); Respiratory Syncytial Virus Negative (Negative)
[2024-10-01 14:09] LABS: COVID-19 CEPHEID 4-PLEX PCR Negative (Negative)
== END ==
PROVIDERS: Family Provider Internal Medicine; PCP Family Medicine; Visit Provider Family Medicine
DX: R05.1 Acute cough (principal); J02.9 Acute pharyngitis, unspecified; R50.9 Fever, unspecified
CPT/HCPCS: 0241U